=== PATIENT | male | born 1945 | race Caucasian/White ===

== ENCOUNTER 2016-12-15 10:32 | Emergency (ER) | payer OTHER ==
--- NOTE | 2016-12-15 12:51 | DIAGNOSTIC IMAGING REPORT ---
PROCEDURE: US SCROTUM/TESTICLE INDICATION: SCROTAL SWELLING TECHNIQUE: Solis scale and color Doppler sonographic images through the scrotum were obtained. COMPARISON: None. FINDINGS: RIGHT TESTICLE: Testicle measures 3.9 x 1.8 x 3.1 cm with normal echo structure and vascularity. Normal epididymis. Varicocele. Small hydrocele. LEFT TESTICLE: Testicle measures 3.3 x 2.1 x 2.9 cm with normal echo structure and vascularity. Normal epididymis. Varicocele. Small hydrocele. There is a 4.7 x 3.4 x 3.3 cm sharply marginated heterogeneous avascular soft tissue mass posterior but separate from the left testicle. There is some vascular flow at the periphery. IMPRESSION: 1. Normal testicles and epididymides 2. Bilateral varicoceles and small hydroceles 3. Avascular mass posterior to but separate from the left testicle. Consider a hematoma or solid mass of uncertain etiology. Recommend urology consultation. 4. Results discussed with Dr. Martinez
--- NOTE | 2016-12-15 14:33 | ED ORDER SUMMARY ---
..... Patient: ZAIRA WHITTEN OrderSheet [facility] VisitID: [id number] [place] [address] 71y, M Registration Date/Time: 12/15/2016 ORDER SHEET Weight: 106.5 kg (stated) Allergies: None GENERAL ORDERS: US Scrotum/Testicular (left testicle) Urgent (11:26 12/15/2016 Robert GALO) (Ack 11:28 Cristiane) (12:20 LWhalen R.N.) CBC w Diff Urgent (13:54 12/15/2016 Robert GALO) (Ack 13:56 Cristiane) (14:42 LWhalen R.N.) PT with INR Urgent (13:54 12/15/2016 Robert GALO) (Ack 13:56 Cristiane) (14:42 LWhalen R.N.) MEDICATION ORDERS: IV FLUIDS: IV NS : initial bolus none -, then TKO - for X1 (NOW); Routine (11:12/15/2016 Robert GALO) (12:20 LWhalen R.N.) Demerol IV 12.5 mg (NOW) (11:12/15/2016 Robert GALO) (12:20 LWhallisa R.N.) ORDER SHEET NOTES: [Electronically signed by Chino Price R.N. (19:12/15/2016)] [Electronically signed by Olegario Martinez MD (16:19 12/17/2016)] [Electronically locked/signed by Chino Price R.N. (19:12/15/2016)]
--- NOTE | 2016-12-15 14:33 | ED ORDER SUMMARY ---
..... Patient: ZAIRA WHITTEN OrderSheet [facility] VisitID: [id number] [place] [address] 71y, M Registration Date/Time: 12/15/2016 ORDER SHEET Weight: 106.5 kg (stated) Allergies: None GENERAL ORDERS: US Scrotum/Testicular (left testicle) Urgent (11:26 12/15/2016 Robert GALO) (Ack 11:28 Cristiane) (12:20 LWhalen R.N.) CBC w Diff Urgent (13:54 12/15/2016 Robert GALO) (Ack 13:56 Cristiane) (14:42 LWhalen R.N.) PT with INR Urgent (13:54 12/15/2016 Robert GALO) (Ack 13:56 Cristiane) (14:42 LWhalen R.N.) MEDICATION ORDERS: IV FLUIDS: IV NS : initial bolus none -, then TKO - for X1 (NOW); Routine (11:12/15/2016 Robert GALO) (12:20 LWhalen R.N.) Demerol IV 12.5 mg (NOW) (11:12/15/2016 Robert GALO) (12:20 LWhallisa R.N.) ORDER SHEET NOTES: [Electronically signed by Chino Price R.N. (19:12/15/2016)] [Electronically signed by Olegario Martinez MD (16:19 12/17/2016)] [Electronically locked/signed by Chino Price R.N. (19:12/15/2016)]
--- NOTE | 2016-12-15 14:33 | ED NURSING NOTES ---
Clinical Report - Nurses [facility] [address] [place] [address] 12/15/2016 10:32 [id number] Triage time 10:46 Dec 15 2016. Acuity: LEVEL 3. KM COMA SCORE: Radnor Coma Scale: 15- eyes open spontaneously (4); best verbal response- oriented x 4 (5); best motor response- obeys commands (6). --10:53 Chino Price R.N. 10:46 12/15/16. BP: 130/76. HR: 83. RR: 18. O2 saturation: 91%. Temp: 97.9 F. Pain level now 8. --10:53 Chino Price R.N. Weight: 106.5 kg stated. Height/Length: 70 inches Per Patient. BMI: 33.7. --10:52 Chino Price R.N. Medications Albuterol Sulfate Inhalation, as needed. Alfuzosin HCl ER Oral 10, daily. Atorvastatin Calcium Oral. Ferrous Sulfate Oral. Furosemide Oral 80 mg, daily (plus 20 mg if weight is up 3 pounds over 2 days). Gabapentin Oral 300 mg, 3x a day. Levothyroxine Sodium Oral 125 mcg, daily (Takes two daily). MetFORMIN HCl Oral 1000 mg, 2x a day. Metoprolol Succinate ER Oral (Tablet Extended Release 24 Hour 200 mg) 25 mg. TraZODone HCl Oral 100 mg, at bedtime. Warfarin Sodium Oral 5 mg tabs, daily (2 tabs daily except Wed take 2 10/09). --10:50 Chino Price R.N. Allergies None. --10:50 Chino Price R.N. History Arrived by private vehicle. Historian: patient. Accompanied by family. Occurred at home. Mechanism of injury: (was pushing on the toilet felt a sharp pain in left groin.). ( Was sitting on the toilet and was pushing and then felt a sharp pain in left groin then he noticed his left testicle swelling up to his groin.). He has had severe trouble walking (from pain). The patient has been limping when trying to walk. No numbness, tingling, weakness, neck pain or back pain. Treatment IT DESKTOP SUPPORT SPECIALIST: None. PAST MEDICAL HX: Diabetes mellitus. Hypertension. Heart disease. Tetanus status: up-to-date. Immunizations: up-to-date. SOCIAL HX: Current every day heavy tobacco smoker- 1 pack per day. History of occasional drug use: marijuana. No alcohol use. No infectious disease exposure. SELF HARM ASSESSMENT: A self harm assessment was performed. The patient answered "yes" to the question "Have you recently felt down, depressed, or hopeless?" and "no" to the question "Do you have thoughts of harming or killing yourself?". FALL RISK ASSESSMENT: Fall risk assessment completed. No fall risk identified. NUTRITIONAL RISK ASSESSMENT: The nutritional risk assessment revealed no deficiencies. FUNCTIONAL ASSESSMENT: Functional assessment: no impairments noted. LEARNING NEEDS ASSESSMENT: The learning needs assessment revealed no barriers. ABUSE ASSESSMENT: Abuse assessment: (yes) The patient was asked "Do you feel safe in your home?". SKIN INTEGRITY ASSESSMENT: Skin integrity risk assessment completed. No skin integrity risk identified. --10:53 Chino Price R.N. PROBLEMS: Cellulitis. Abscess. Perirectal Abscess. COPD - Chronic Obstructive Pulmonary Disease. Lung Disease. Immunizations. Myocardial Infarction. Diabetes Mellitus. --10:51 Chino Price R.N. ADDITIONAL SURGERIES: Angioplasty of vein. Pacemaker. Partial toe amputation . Thyroidectomy. --10:51 Chino Price R.N. Interventions ID band on patient. --10:53 Chino Price RPatriciaN. PHYSICAL ASSESSMENT Ambulatory to room. GENERAL / NEURO / PSYCH: Oriented X 4. Appears in pain and in distress. GI / : Perineum. EXTREMITIES: Pain with weight bearing. Limping gait. ( Swollen left testicle). SKIN: Skin intact. Skin is warm and dry. --10:54 Chino Price R.N. NURSING PROGRESS NOTES The initial plan of care for this patient includes an assessment with efforts to address patient positioning, appropriate ambient lighting and comfortable environmental temperature; impairment of the genitourinary system. Patient gowned. Reassurance given. Call light placed in reach. Side rails up x 1. Bed placed in lowest position. --10:54 Chino Price R.N. 11:50 12/15/16. ( Came into to give patient his demerol IV and [employer] states she is giving patient a US and that I needed to wait it will only be 5 min.). --12:14 Chino Price R.N. 11:54 12/15/2016 Site #1 started via IV in the right forearm with an 20g angiocath, with aseptic technique and good blood return; one attempt. Blood drawn: rainbow set. Labeled in the presence of the patient and sent to the lab. Saline lock flushed with 10 mL saline. --12:19 Chino Price R.N. 12:20 12/15/2016 Started bag #1 1000 mL IV Fluids IV NS (Saline); at 1000 mL/hr over 1 hour(s) via site #1 via dial-a-flow. Allergies verified and confirmed 5 rights. IV patency established. IV site checked: no pain, redness, or swelling. IV flushed thoroughly pre- and post-medication administration. --12:20 Chino Price R.N. 12:20 12/15/2016 Demerol (Meperidine HCl) IVP 12.5 mg given over 2 minute(s) via site #1. Allergies verified and confirmed 5 rights. IV patency established. IV site checked: no pain, redness, or swelling. IV flushed thoroughly pre- and post-medication administration. --12:20 Chino Price R.N. 12:20 12/15/16. BP: 107/73. HR: 76. RR: 20. O2 saturation: 92% on nasal cannula at 2 liters/minute. --12:20 Chino Price R.N. 14:37 12/15/2016 Demerol (Meperidine HCl) IVP 12.5 mg given over 2 minute(s) via site #1. Allergies verified and confirmed 5 rights. IV patency established. IV site checked: no pain, redness, or swelling. IV flushed thoroughly pre- and post-medication administration. --14:42 Chino Price R.N. 14:38 12/15/2016 IV Fluids IV NS Discontinued: bag #1 infused. Total amount infused: 1000 mL. IV patency established. IV site checked: no pain, redness, or swelling. IV flushed thoroughly. --14:48 Chino Price R.N. 13:20 12/15/16. BP: 119/72. HR: 75. RR: 20. O2 saturation: 93%. 12:20 12/15/16. BP: 107/73. HR: 76. RR: 20. O2 saturation: 92% on nasal cannula at 2 liters/minute. --14:50 Chino Price R.N. DISPOSITION / DISCHARGE Departure time: 14:47 Dec 15 2016. Condition at departure: improved. No learning barriers present. Discharge instructions provided and reviewed with the patient and spouse. Reviewed warnings. Reviewed medication(s). Treatments reviewed. Reviewed referrals. Patient verbalized understanding. Written instructions provided in Upper Sorbian. The patient was discharged home and accompanied by spouse. He left the Emergency Department ambulatory and via private vehicle. Spouse driving. --14:47 Chino Price R.N. 14:46 12/15/16. BP: 109/73. HR: 74. RR: 22. O2 saturation: 92% on nasal cannula at 2 liters/minute. Temp: 98.4 F. Pain level now: 03/17. --14:47 Chino Price R.N. 14:38 12/15/2016 Site #1 removed upon discharge. Catheter intact. Pressure dressing applied. --14:48 Chino Price R.N. Locked/Released at 12/15/2016 19:05 by Chino Price R.N.
--- NOTE | 2016-12-15 14:33 | ED CLINICAL REPORT ---
Clinical Report - Physicians/Mid Levels [facility] [address] [place] [address] 12/15/2016 10:32 Patient: ZAIRA WHITTEN Time Seen: 11:22 Dec 15 2016. Arrived- By private vehicle. Historian- patient. CPT: ER phys charges level 4 (#[id number]). HISTORY OF PRESENT ILLNESS Chief Complaint: LEFT TESTICULAR PAIN. This started just prior to arrival Pt was bearing down real hard during a bowel movement and felt a pop in the left groin and then severe pain came on in the left testicle. and is still present. The problem is described as severe. No penile discharge, urinary frequency or genital lesion. He has had moderate testicular pain, involving the left testicle. Sexual history is noncontributory. (Pain radiates to the groin and lower left abdomen.). Similar symptoms previously: None. Recent medical care: Not recently seen/assessed. REVIEW OF SYSTEMS No fever, chills, flank pain, hematuria or abdominal pain. No vomiting, diarrhea, black stools, sore throat or chest pain. No difficulty breathing, joint pain or skin rash. All systems otherwise negative, except as recorded above. PAST HISTORY ( Cellulitis. Abscess. Perirectal Abscess. COPD - Chronic Obstructive Pulmonary Disease. Lung Disease. Immunizations. Myocardial Infarction. Diabetes Mellitus. --10:51 Chino Price RDashawn. ADDITIONAL SURGERIES: Angioplasty of vein. Pacemaker. Partial toe amputation . Thyroidectomy.). Medications: Albuterol Sulfate Inhalation, as needed. Alfuzosin HCl ER Oral 10, daily. Atorvastatin Calcium Oral. Ferrous Sulfate Oral. Furosemide Oral 80 mg, daily (plus 20 mg if weight is up 3 pounds over 2 days). Gabapentin Oral 300 mg, 3x a day. Levothyroxine Sodium Oral 125 mcg, daily (Takes two daily). MetFORMIN HCl Oral 1000 mg, 2x a day. Metoprolol Succinate ER Oral (Tablet Extended Release 24 Hour 200 mg) 25 mg. TraZODone HCl Oral 100 mg, at bedtime. Warfarin Sodium Oral 5 mg tabs, daily (2 tabs daily except Wed take 2 10/09). Allergies: None. SOCIAL HISTORY Heavy tobacco smoker (cigarette)- less than 1 pack per day. History of occasional drug use: marijuana. No alcohol use. ADDITIONAL NOTES The nursing notes have been reviewed. PHYSICAL EXAM Vital Signs: 12/15/2016 10:46 BP: 130/76. HR: 83. RR: 18. O2 saturation: 91%. Temp: 97.9 F. Appearance: Alert. Appears to be in pain. Patient in moderate distress. ENT: Normal external inspection. Pharynx normal. CVS: Heart sounds normal. Respiratory: No respiratory distress. Breath sounds normal. Abdomen: Soft and nontender. Back: Normal external inspection. No CVA tenderness. : Moderate tenderness of the left testicle (tender mass adjacent to the left testicle.). Skin: Skin warm. Normal skin color. No rash. Extremities: Extremities exhibit normal ROM. No lower extremity edema. Neuro: Oriented X 3. No motor deficit. No sensory deficit. LABS, X-RAYS, AND EKG Testicular Scan: (Bilateral varicocele. 4.7 by 3.4 by 3.7 mass that is avascular.Sharply marginated. Mass vs hematoma are considerations.). Laboratory Tests: CBC w Diff: (MADELYN: 12/15/2016 11:45) ( MsgRcvd 12/15/2016 14:08) Final results Test Result Flag Units (Reference) WHITE BLOOD COUNT 5.8 K/uL (4.5-11.5) RED BLOOD COUNT 3.71 L M/uL (4.50-5.90) HEMOGLOBIN 11.4 L gm/dL (13.5-17.5) HEMATOCRIT 34.9 L % (41.0-53.0) MEAN CELL VOLUME 94 fL (80-100) MEAN CORPUSCULAR HGB 31 pg (26-34) MEAN CORPUSCULAR HGB CONC 33 g/dL (31-37) RED CELL DISTRIBUTION WIDTH 17.0 H % (11.6-14.8) PLATELET COUNT 153 K/uL (150-400) NEUTROPHIL % 70.0 % (50-75) LYMPH % 16.6 L % (25-40) MONO % 11.7 % (3-14) EOSINOPHIL % 1.2 % (0-4) BASOPHIL % 0.5 % (0-2) PT with INR: (MADELYN: 12/15/2016 11:45) ( MsgRcvd 12/15/2016 14:11) Final results Test Result Flag Units (Reference) INR 3.2 H (0.8-1.2) Low Intensity Therapy: INR 1.5-2.0 PT range 18.5-23.1Mod.Intensity Therapy: INR 2.0-3.0 PT range 23.1-31.5High Intensity Therapy: INR 2.5-3.5 PT range 27.4-35.5High Intensity Therapy 2: INR 3.0-4.0 PT range 31.5-39.3 . PROGRESS AND PROCEDURES Course of Care: Dr Martinez recommended stopping the coumadin. Pt INR today is 3.2 PT on coumadin for a-fib. Has pacer for what sounds like tachy-sd syndrome. [facility] so he can be advised on when to re-start it. Discussed case with on-call health care provider, (Michelle: Urology). Reviewed test results. Agreed upon treatment plan. Health care provider will see patient in office. Patient/family counseled. Disposition: Discharged. Condition: stable. CLINICAL IMPRESSION Acute left para-testicular hematoma Anticoagulation for atrial fibrillation. Constipation. INSTRUCTIONS No strenuous activity. Drink plenty of fluids. (Keep left testicle supported. Elevate and ice 3 times a day for 20 minutes for 1 day. No straining at all or heavy lifting. Ask Family Doctor when to resume coumadin.). Warnings: Further evaluation is necessary. GENERAL WARNINGS: Return or contact your physician immediately if your condition worsens or changes unexpectedly, if not improving as expected, or if other problems arise. Your Current Medications: STOP TAKING THE FOLLOWING MEDICATIONS: Warfarin Sodium Oral : 5 mg tabs daily, 2 tabs daily except Wed take 2 1/2. Prescription Medications: Zofran 4 mg: Take 1 orally every six hours as needed for nausea/vomiting. Dispense ten (10). No refills. Substitution is permissible. Oxycodone/APAP 5 mg/325 mg: take 1-2 tablets orally every 4 hours as needed for pain. Dispense twenty-five (25). No refill. Miralax: take 1 measuring cupful supplied (1 heaping tablespoon) mixed in 8 ounces liquid daily as needed for constipation. Dispense fourteen (14) ounce bottle. No refill. Substitution is permissible. Follow-up: Follow up with your doctor Sunday. Call for the next available appointment. Reason for referral: Let Primary Doctor know that the coumadin has been stopped. Follow up with a urologist Dr Ines Martinez next week : Call for appointment: [phone] in one week. Call for the next available appointment. Reason for referral: Painful left testicle with hematoma: Dr Martinez recommended follow up in a week. Understanding of the discharge instructions verbalized by patient. Discharge instructions reviewed with and understanding was verbalized by spouse. (Electronically signed by Olegario Martinez MD 12/17/2016 16:19)
--- NOTE | 2016-12-17 16:19 | ED MAR SUMMARY ---
..... Medication Administration Record [facility] [address] [place] [address] Patient: ZAIRA WHITTEN Visit ID: [id number] 71y, M Weight: 106.5 kg Height/Length: 70 in BMI: 33.7 ALLERGIES: None Start 12:20 12/15/2016 Chino rPice R.N., Stop 14:38 12/15/2016 Chino Price R.N. Medication Administered: IV NS (SALINE), Dose: IV Fluids over 1 hour(s), Rate: 1000 mL/hr, Dispensed: 1000 mL bag, Site: #1 right forearm. Medication Ordered: IV NS : initial bolus none -, then TKO - for X1 (NOW); Routine. Given 12:20 12/15/2016 Chino Price R.N. Medication Administered: DEMEROL [IVP] (MEPERIDINE HCL), Dose: 12.5 mg IVP over 2 minute(s), Site: #1 right forearm. Medication Ordered: Demerol IV 12.5 mg (NOW). Given 14:37 12/15/2016 Chino Price R.NPatricia Medication Administered: DEMEROL [IVP] (MEPERIDINE HCL), Dose: 12.5 mg IVP over 2 minute(s), Site: #1 right forearm. Medication Ordered: Demerol IV 12.5 mg (NOW).
--- NOTE | 2016-12-17 16:19 | ED DISCHARGE INSTRUCTIONS ---
Patient: ZAIRA WHITTEN General Instructions [facility] VisitID: [id number] [place] [address] 71y, M Registration Date/Time: 12/15/2016 Acute left para-testicular hematoma Anticoagulation for atrial fibrillation. Constipation. INSTRUCTIONS No strenuous activity. Drink plenty of fluids. (Keep left testicle supported. Elevate and ice 3 times a day for 20 minutes for 1 day. No straining at all or heavy lifting. Ask Family Doctor when to resume coumadin.). Warnings: Further evaluation is necessary. GENERAL WARNINGS: Return or contact your physician immediately if your condition worsens or changes unexpectedly, if not improving as expected, or if other problems arise. Your Current Medications: STOP TAKING THE FOLLOWING MEDICATIONS: Warfarin Sodium Oral : 5 mg tabs daily, 2 tabs daily except Wed take 2 1/2. Prescription Medications: Zofran 4 mg: Take 1 orally every six hours as needed for nausea/vomiting. Dispense ten (10). No refills. Substitution is permissible. Oxycodone/APAP 5 mg/325 mg: take 1-2 tablets orally every 4 hours as needed for pain. Dispense twenty-five (25). No refill. Miralax: take 1 measuring cupful supplied (1 heaping tablespoon) mixed in 8 ounces liquid daily as needed for constipation. Dispense fourteen (14) ounce bottle. No refill. Substitution is permissible. Follow-up: Follow up with your doctor Sunday. Call for the next available appointment. Reason for referral: Let Primary Doctor know that the coumadin has been stopped. Follow up with a urologist Dr Ines Martinez next week : Call for appointment: [phone] in one week. Call for the next available appointment. Reason for referral: Painful left testicle with hematoma: Dr Martinez recommended follow up in a week. Understanding of the discharge instructions verbalized by patient. Discharge instructions reviewed with and understanding was verbalized by spouse. ADDITIONAL INFORMATION Oxycodone Hydrochloride, Acetaminophen Oral tablet What is this medicine? ACETAMINOPHEN; OXYCODONE (a set a ABRIL nicole fen; ox i KOE done) is a pain reliever. It is used to treat mild to moderate pain. How should I use this medicine? Take this medicine by mouth with a full glass of water. Follow the directions on the prescription label. Take your medicine at regular intervals. Do not take your medicine more often than directed. Talk to your weigher production regarding the use of this medicine in children. Special care may be needed. Patients over 65 years old may have a stronger reaction and need a smaller dose. What side effects may I notice from receiving this medicine? Side effects that you should report to your doctor or health care program director as soon as possible: allergic reactions like skin rash, itching or hives, swelling of the face, lips, or tongue breathing difficulties, wheezing confusion light headedness or fainting spells severe stomach pain yellowing of the skin or the whites of the eyes Side effects that usually do not require medical attention (report to your doctor or health care program director if they continue or are bothersome): dizziness drowsiness nausea vomiting What may interact with this medicine? alcohol antihistamines barbiturates like amobarbital, butalbital, butabarbital, methohexital, pentobarbital, phenobarbital, thiopental, and secobarbital benztropine drugs for bladder problems like solifenacin, trospium, oxybutynin, tolterodine, hyoscyamine, and methscopolamine drugs for breathing problems like ipratropium and tiotropium drugs for certain stomach or intestine problems like propantheline, homatropine methylbromide, glycopyrrolate, atropine, belladonna, and dicyclomine general anesthetics like etomidate, ketamine, nitrous oxide, propofol, desflurane, enflurane, halothane, isoflurane, and sevoflurane medicines for depression, anxiety, or psychotic disturbances medicines for sleep muscle relaxants naltrexone narcotic medicines (opiates) for pain phenothiazines like perphenazine, thioridazine, chlorpromazine, mesoridazine, fluphenazine, prochlorperazine, promazine, and trifluoperazine scopolamine tramadol trihexyphenidyl What if I miss a dose? If you miss a dose, take it as soon as you can. If it is almost time for your next dose, take only that dose. Do not take double or extra doses. Where should I keep my medicine? Keep out of the reach of children. This medicine can be abused. Keep your medicine in a safe place to protect it from theft. Do not share this medicine with anyone. Selling or giving away this medicine is dangerous and against the law. Store at room temperature between 20 and 25 degrees C (68 and 77 degrees F). Keep container tightly closed. Protect from light. This medicine may cause accidental overdose and if it is taken by other adults, children, or pets. Flush any unused medicine down the toilet to reduce the chance of harm. Do not use the medicine after the expiration date. What should I tell my health care provider before I take this medicine? They need to know if you have any of these conditions: brain tumor Crohn's disease, inflammatory bowel disease, or ulcerative colitis drink more than 3 alcohol containing drinks per day drug abuse or addiction head injury heart or circulation problems kidney disease or problems going to the bathroom liver disease lung disease, asthma, or breathing problems an unusual or allergic reaction to acetaminophen, oxycodone, other opioid analgesics, other medicines, foods, dyes, or preservatives or trying to get breast-feeding What should I watch for while using this medicine? Tell your doctor or health care program director if your pain does not go away, if it gets worse, or if you have new or a different type of pain. You may develop tolerance to the medicine. Tolerance means that you will need a higher dose of the medication for pain relief. Tolerance is normal and is expected if you take this medicine for a long time. Do not suddenly stop taking your medicine because you may develop a severe reaction. Your body becomes used to the medicine. This does NOT mean you are addicted. Addiction is a behavior related to getting and using a drug for a non-medical reason. If you have pain, you have a medical reason to take pain medicine. Your doctor will tell you how much medicine to take. If your doctor wants you to stop the medicine, the dose will be slowly lowered over time to avoid any side effects. You may get drowsy or dizzy. Do not drive, use machinery, or do anything that needs mental alertness until you know how this medicine affects you. Do not stand or sit up quickly, especially if you are an older patient. This reduces the risk of dizzy or fainting spells. Alcohol may interfere with the effect of this medicine. Avoid alcoholic drinks. There are different types of narcotic medicines (opiates) for pain. If you take more than one type at the same time, you may have more side effects. Give your health care provider a list of all medicines you use. Your doctor will tell you how much medicine to take. Do not take more medicine than directed. Call emergency for help if you have problems breathing. The medicine will cause constipation. Try to have a bowel movement at least every 2 to 3 days. If you do not have a bowel movement for 3 days, call your doctor or health care program director. Do not take Tylenol (acetaminophen) or medicines that have acetaminophen with this medicine. Too much acetaminophen can be very dangerous. Many nonprescription medicines contain acetaminophen. Always read the labels carefully to avoid taking more acetaminophen. You have been given the following additional information: Oxycodone Hydrochloride, Acetaminophen Oral tablet No strenuous activity. (Electronically signed by Olegario Martinez MD 12/17/2016 16:19)
--- NOTE | 2016-12-17 16:19 | ED MAR SUMMARY ---
..... Medication Administration Record [facility] [address] [place] [address] Patient: ZAIRA WHITTEN Visit ID: [id number] 71y, M Weight: 106.5 kg Height/Length: 70 in BMI: 33.7 ALLERGIES: None Start 12:20 12/15/2016 Chino Price R.N., Stop 14:38 12/15/2016 Chino Price R.N. Medication Administered: IV NS (SALINE), Dose: IV Fluids over 1 hour(s), Rate: 1000 mL/hr, Dispensed: 1000 mL bag, Site: #1 right forearm. Medication Ordered: IV NS : initial bolus none -, then TKO - for X1 (NOW); Routine. Given 12:20 12/15/2016 Chino Price R.N. Medication Administered: DEMEROL [IVP] (MEPERIDINE HCL), Dose: 12.5 mg IVP over 2 minute(s), Site: #1 right forearm. Medication Ordered: Demerol IV 12.5 mg (NOW). Given 14:37 12/15/2016 Chino Price R.NPatricia Medication Administered: DEMEROL [IVP] (MEPERIDINE HCL), Dose: 12.5 mg IVP over 2 minute(s), Site: #1 right forearm. Medication Ordered: Demerol IV 12.5 mg (NOW).
--- NOTE | 2016-12-17 16:19 | ED MED RECONCILIATION SUMMARY ---
Patient: ZAIRA WHITTEN Medication Reconciliation Report [facility] VisitID: [id number] [place] [address] 71y, M Registration Date/Time: 12/15/2016 Weight: 106.5 kg Height/Length: 70 in. BMI: 33.7 ALLERGIES: None The patient's Home Medications are listed below: STOP TAKING THE FOLLOWING MEDICATIONS: Warfarin Sodium Oral 5 mg tabs, daily, 2 tabs daily except Wed take 2 1/2 THE FOLLOWING MEDICATIONS NEED TO BE RECONCILED: Albuterol Sulfate Inhalation Alfuzosin HCl ER Oral 10, daily Atorvastatin Calcium Oral Ferrous Sulfate Oral Furosemide Oral 80 mg, daily, plus 20 mg if weight is up 3 pounds over 2 days Gabapentin Oral 300 mg, 3x a day Levothyroxine Sodium Oral 125 mcg, daily, Takes two daily MetFORMIN HCl Oral 1000 mg, 2x a day Metoprolol Succinate ER Oral (200 mg) 25 mg TraZODone HCl Oral 100 mg, at bedtime The source(s) of the original Home Medication information: Not obtained. The following Medications were given to the patient in the Emergency Department: IV NS IV Fluids bolus 0, then 1000 mL/hr, administered: 12/15/2016 12:20:00 PM Demerol [IVP] IVP 12.5 mg, administered: 12/15/2016 12:20:00 PM Demerol [IVP] IVP 12.5 mg, administered: 12/15/2016 2:37:00 PM The following Medications were prescribed to the patient: Zofran 4 mg: Take 1 orally every six hours as needed for nausea/vomiting. Dispense ten (10). No refills. Substitution is permissible. -- Olegario Martinez MD Oxycodone/APAP 5 mg/325 mg: take 1-2 tablets orally every 4 hours as needed for pain. Dispense twenty-five (25). No refill. -- Olegario Martinez MD Miralax: take 1 measuring cupful supplied (1 heaping tablespoon) mixed in 8 ounces liquid daily as needed for constipation. Dispense fourteen (14) ounce bottle. No refill. Substitution is permissible. -- Olegario Martinez MD
--- NOTE | 2016-12-17 16:19 | ED MED RECONCILIATION SUMMARY ---
Patient: ZAIRA WHITTEN Medication Reconciliation Report [facility] VisitID: [id number] [place] [address] 71y, M Registration Date/Time: 12/15/2016 Weight: 106.5 kg Height/Length: 70 in. BMI: 33.7 ALLERGIES: None The patient's Home Medications are listed below: STOP TAKING THE FOLLOWING MEDICATIONS: Warfarin Sodium Oral 5 mg tabs, daily, 2 tabs daily except Wed take 2 1/2 THE FOLLOWING MEDICATIONS NEED TO BE RECONCILED: Albuterol Sulfate Inhalation Alfuzosin HCl ER Oral 10, daily Atorvastatin Calcium Oral Ferrous Sulfate Oral Furosemide Oral 80 mg, daily, plus 20 mg if weight is up 3 pounds over 2 days Gabapentin Oral 300 mg, 3x a day Levothyroxine Sodium Oral 125 mcg, daily, Takes two daily MetFORMIN HCl Oral 1000 mg, 2x a day Metoprolol Succinate ER Oral (200 mg) 25 mg TraZODone HCl Oral 100 mg, at bedtime The source(s) of the original Home Medication information: Not obtained. The following Medications were given to the patient in the Emergency Department: IV NS IV Fluids bolus 0, then 1000 mL/hr, administered: 12/15/2016 12:20:00 PM Demerol [IVP] IVP 12.5 mg, administered: 12/15/2016 12:20:00 PM Demerol [IVP] IVP 12.5 mg, administered: 12/15/2016 2:37:00 PM The following Medications were prescribed to the patient: Zofran 4 mg: Take 1 orally every six hours as needed for nausea/vomiting. Dispense ten (10). No refills. Substitution is permissible. -- Olegario Martinez MD Oxycodone/APAP 5 mg/325 mg: take 1-2 tablets orally every 4 hours as needed for pain. Dispense twenty-five (25). No refill. -- Olegario Martinez MD Miralax: take 1 measuring cupful supplied (1 heaping tablespoon) mixed in 8 ounces liquid daily as needed for constipation. Dispense fourteen (14) ounce bottle. No refill. Substitution is permissible. -- Olegario Martinez MD
--- NOTE | 2016-12-17 16:19 | ED DISCHARGE INSTRUCTIONS ---
Patient: ZAIRA WHITTEN General Instructions [facility] VisitID: [id number] [place] [address] 71y, M Registration Date/Time: 12/15/2016 Acute left para-testicular hematoma Anticoagulation for atrial fibrillation. Constipation. INSTRUCTIONS No strenuous activity. Drink plenty of fluids. (Keep left testicle supported. Elevate and ice 3 times a day for 20 minutes for 1 day. No straining at all or heavy lifting. Ask Family Doctor when to resume coumadin.). Warnings: Further evaluation is necessary. GENERAL WARNINGS: Return or contact your physician immediately if your condition worsens or changes unexpectedly, if not improving as expected, or if other problems arise. Your Current Medications: STOP TAKING THE FOLLOWING MEDICATIONS: Warfarin Sodium Oral : 5 mg tabs daily, 2 tabs daily except Wed take 2 1/2. Prescription Medications: Zofran 4 mg: Take 1 orally every six hours as needed for nausea/vomiting. Dispense ten (10). No refills. Substitution is permissible. Oxycodone/APAP 5 mg/325 mg: take 1-2 tablets orally every 4 hours as needed for pain. Dispense twenty-five (25). No refill. Miralax: take 1 measuring cupful supplied (1 heaping tablespoon) mixed in 8 ounces liquid daily as needed for constipation. Dispense fourteen (14) ounce bottle. No refill. Substitution is permissible. Follow-up: Follow up with your doctor Sunday. Call for the next available appointment. Reason for referral: Let Primary Doctor know that the coumadin has been stopped. Follow up with a urologist Dr Ines Martinez next week : Call for appointment: [phone] in one week. Call for the next available appointment. Reason for referral: Painful left testicle with hematoma: Dr Martinez recommended follow up in a week. Understanding of the discharge instructions verbalized by patient. Discharge instructions reviewed with and understanding was verbalized by spouse. ADDITIONAL INFORMATION Oxycodone Hydrochloride, Acetaminophen Oral tablet What is this medicine? ACETAMINOPHEN; OXYCODONE (a set a ABRIL nicole fen; ox i KOE done) is a pain reliever. It is used to treat mild to moderate pain. How should I use this medicine? Take this medicine by mouth with a full glass of water. Follow the directions on the prescription label. Take your medicine at regular intervals. Do not take your medicine more often than directed. Talk to your maintenance and operations supervisor regarding the use of this medicine in children. Special care may be needed. Patients over 65 years old may have a stronger reaction and need a smaller dose. What side effects may I notice from receiving this medicine? Side effects that you should report to your doctor or health foster care case manager as soon as possible: allergic reactions like skin rash, itching or hives, swelling of the face, lips, or tongue breathing difficulties, wheezing confusion light headedness or fainting spells severe stomach pain yellowing of the skin or the whites of the eyes Side effects that usually do not require medical attention (report to your doctor or health foster care case manager if they continue or are bothersome): dizziness drowsiness nausea vomiting What may interact with this medicine? alcohol antihistamines barbiturates like amobarbital, butalbital, butabarbital, methohexital, pentobarbital, phenobarbital, thiopental, and secobarbital benztropine drugs for bladder problems like solifenacin, trospium, oxybutynin, tolterodine, hyoscyamine, and methscopolamine drugs for breathing problems like ipratropium and tiotropium drugs for certain stomach or intestine problems like propantheline, homatropine methylbromide, glycopyrrolate, atropine, belladonna, and dicyclomine general anesthetics like etomidate, ketamine, nitrous oxide, propofol, desflurane, enflurane, halothane, isoflurane, and sevoflurane medicines for depression, anxiety, or psychotic disturbances medicines for sleep muscle relaxants naltrexone narcotic medicines (opiates) for pain phenothiazines like perphenazine, thioridazine, chlorpromazine, mesoridazine, fluphenazine, prochlorperazine, promazine, and trifluoperazine scopolamine tramadol trihexyphenidyl What if I miss a dose? If you miss a dose, take it as soon as you can. If it is almost time for your next dose, take only that dose. Do not take double or extra doses. Where should I keep my medicine? Keep out of the reach of children. This medicine can be abused. Keep your medicine in a safe place to protect it from theft. Do not share this medicine with anyone. Selling or giving away this medicine is dangerous and against the law. Store at room temperature between 20 and 25 degrees C (68 and 77 degrees F). Keep container tightly closed. Protect from light. This medicine may cause accidental overdose and if it is taken by other adults, children, or pets. Flush any unused medicine down the toilet to reduce the chance of harm. Do not use the medicine after the expiration date. What should I tell my health care provider before I take this medicine? They need to know if you have any of these conditions: brain tumor Crohn's disease, inflammatory bowel disease, or ulcerative colitis drink more than 3 alcohol containing drinks per day drug abuse or addiction head injury heart or circulation problems kidney disease or problems going to the bathroom liver disease lung disease, asthma, or breathing problems an unusual or allergic reaction to acetaminophen, oxycodone, other opioid analgesics, other medicines, foods, dyes, or preservatives or trying to get breast-feeding What should I watch for while using this medicine? Tell your doctor or health foster care case manager if your pain does not go away, if it gets worse, or if you have new or a different type of pain. You may develop tolerance to the medicine. Tolerance means that you will need a higher dose of the medication for pain relief. Tolerance is normal and is expected if you take this medicine for a long time. Do not suddenly stop taking your medicine because you may develop a severe reaction. Your body becomes used to the medicine. This does NOT mean you are addicted. Addiction is a behavior related to getting and using a drug for a non-medical reason. If you have pain, you have a medical reason to take pain medicine. Your doctor will tell you how much medicine to take. If your doctor wants you to stop the medicine, the dose will be slowly lowered over time to avoid any side effects. You may get drowsy or dizzy. Do not drive, use machinery, or do anything that needs mental alertness until you know how this medicine affects you. Do not stand or sit up quickly, especially if you are an older patient. This reduces the risk of dizzy or fainting spells. Alcohol may interfere with the effect of this medicine. Avoid alcoholic drinks. There are different types of narcotic medicines (opiates) for pain. If you take more than one type at the same time, you may have more side effects. Give your health care provider a list of all medicines you use. Your doctor will tell you how much medicine to take. Do not take more medicine than directed. Call emergency for help if you have problems breathing. The medicine will cause constipation. Try to have a bowel movement at least every 2 to 3 days. If you do not have a bowel movement for 3 days, call your doctor or health foster care case manager. Do not take Tylenol (acetaminophen) or medicines that have acetaminophen with this medicine. Too much acetaminophen can be very dangerous. Many nonprescription medicines contain acetaminophen. Always read the labels carefully to avoid taking more acetaminophen. You have been given the following additional information: Oxycodone Hydrochloride, Acetaminophen Oral tablet No strenuous activity. (Electronically signed by Olegario Martinez MD 12/17/2016 16:19)
== END 2016-12-15 14:40 | disposition home or self-care (01) ==
LOC: ED SRH 10:32
DX: S30.22XA Contusion of scrotum and testes, initial encounter (principal); I48.91 Unspecified atrial fibrillation; Z79.01 Long term (current) use of anticoagulants; K59.00 Constipation, unspecified; X50.0XXA Overexertion from strenuous movement or load, initial encounter; Y93.89 Activity, other specified; Y92.012 Bathroom of single-family (private) house as the place of occurrence of the external cause; E11.9 Type 2 diabetes mellitus without complications; I10 Essential (primary) hypertension; F17.210 Nicotine dependence, cigarettes, uncomplicated
CPT/HCPCS: 94060; 95059